=== PATIENT | male | born 1965 | race Caucasian/White ===

== ENCOUNTER 2019-11-10 15:30 | Outpatient (CLI) | payer OTHER ==
[~2019-11-10 15:30] MED LIST: ATOR40TA PO; CYCL10TA26 PO; LOSA50TA3 PO; METO50TA17 PO; PANT-47 PO; PER5325T PO; TEST200V10 IM
== END 2019-11-10 23:59 | disposition home or self-care (01) ==
LOC: RAD 15:30
PROVIDERS: ATTEND Nurse Practitioner Family
DX: K21.9 Gastro-esophageal reflux disease without esophagitis (principal); R13.14 Dysphagia, pharyngoesophageal phase; R49.0 Dysphonia
CPT/HCPCS: 74230